=== PATIENT | female | born 2000 | race Caucasian/White ===

== ENCOUNTER 2022-06-05 03:58 | Emergency (ER) | payer BC ==
[~2022-06-05] VITALS: Ht 165.1 cm; Wt 90.0 kg
[2022-06-05 05:09] VITALS: BP 130/82; PULSE 70; TEMP 97.8
== END 2022-06-05 05:16 | disposition home or self-care (01) ==
LOC: COL.ER 03:58
DX: G43.909 Migraine, unspecified, not intractable, without status migrainosus (principal)
CPT/HCPCS: J1200; J1885; J2765; J7030